=== PATIENT | male | born 1990 | race Caucasian/White ===

== ENCOUNTER 2017-07-13 15:31 | Emergency (ER) | payer BC ==
[~2017-07-13] VITALS: Ht 167.6 cm; Wt 69.9 kg
[~2017-07-13 15:31] MED LIST: ACET-1256 PO; AMOX500T PO; CALCTAB5 PO; CHOL100010 PO; FERR325T81 PO; HYDR2TAB48 PO; MISC4CAP PO; MRC50 PO; MULT-506 PO; PRLSR20 PO; TRAM-10 PO; VEDO1INJ INJ
[2017-07-13 15:39] VITALS: TEMP 36.8; Ht 167.6 cm; Wt 69.9 kg
[2017-07-13 17:08] LABS: BUN/CREATININE RATIO 9.2 (10-20); CALCIUM 9.6 mg/dl (8.5-10.1); CREATININE 0.99 mg/dl (0.60-1.40); POTASSIUM 3.5 mmol/L (3.5-5.1)
[2017-07-13 17:11] LABS: BASO % 0.3 %; BASO ABS # 0.02 K/uL (0-0.2); COMPLETE YES; EOS % 0.6 %; HEMATOCRIT 42.8 % (42-52); IG% 0.1 %; LYMPH ABS # 1.46 K/uL (1.2-3.4); MEAN CORPUSCULAR HEMOGLOBIN 31.5 pg (25-34); MEAN CORPUSCULAR HGB CONC 36.2 g/dl (32-36); MONO % 6.6 %; NEUT % 71.4 %; PLATELET COUNT 254 K/uL (130-400); RED BLOOD COUNT 4.92 M/uL (4.7-6.1); WHITE BLOOD COUNT 6.96 K/uL (4.8-10.8)
[2017-07-13 18:01] VITALS: BP 95/69; PULSE 82; O2SAT 100
--- NOTE | 2017-07-13 18:05 | EMERGENCY ROOM VISIT NOTE ---
History Report prepared by Matthias: Pablo Milian Under the Supervision of: Dr. Azael Pruitt M.D. First contact with patient: 15:53 Chief Complaint: GI ASSESSMENT Stated Complaint: POSSIBLE HERNIA,ISSUES WITH OSTOMY Nursing Triage Summary: patient states he has an ostomy and was lifting something heavy today. patient states, "I think I ay have pushed some of my intestines out. " History of Present Illness The patient is a 27 year old male with Crohn's disease who presents to the Emergency Room with complaints of persistent abdominal pain that started around 3 hours ago. He has an ileostomy, which was placed a year ago in [place]. The patient states that he was lifting a heavy 3 by 7 foot bar of aluminum, and a bit later, he felt a bulging in his ostomy bag and knew that something was not right. He says that the ileostomy site does not hurt, but he did start getting some achy left upper quadrant abdominal pain a bit after lifting the bar. He notes that he did not have any abdominal pain before lifting the bar. The patient denies any fevers, vomiting, diarrhea, or urinary symptoms. He notes that he is doing fine other than the symptoms after lifting the bar. He adds that he still has all of his colon. He is having output from his ileostomy without blood. Source of History: patient Onset: 3 hours ago Position: abdomen Quality: ache, other (after lifting bar) Timing: other (persistent) Associated Symptoms: No fevers, No vomiting, No diarrhea, No urinary symptoms Note: Associated symptoms: Bulging in ileostomy. Denies pain around ileostomy site. Review of Systems See HPI for pertinent positives & negatives. A total of 10 systems reviewed and were otherwise negative. Past Medical & Surgical Medical Problems: (1) Abscess of anal and rectal regions (2) CD (Crohn's disease) (3) Costochondritis (4) Crohn's colitis Family History Diabetes mellitus FH: cancer Hypertension Social History Smoking Status: Never Smoker Alcohol Use: none Drug Use: none Marital Status: single Housing Status: lives with family Occupation Status: student Current/Historical Medications Scheduled Calcium (Caltrate), 600 MG PO DAILY Cholecalciferol (Vitamin D), 1,000 INTER.UNIT PO DAILY Ferrous Gluconate (Iron Supplement), 65 MG PO DAILY Mercaptopurine (Mercaptopurine), 1.5 TAB PO DAILY Multivitamin (Multivitamin), 1 TAB PO DAILY Omeprazole (Prilosec), 20 MG PO DAILY Probiotic Product (Align), 1 CAP PO DAILY Vedolizumab (Entyvio), 300 MG INJ Q8WK Allergies Coded Allergies: Infliximab (Verified Allergy, Severe, ANAPHYLAXIS, 07/13/17) Patient received pre Treats as prescribed for REmicade. Infusion started. Less than 50cc had infused. Patient developed redness of face, lips swelling and nausea. Opted to send patient immediately to Ed for additional care Lactose Intolerance (Verified Adverse Reaction, Unknown, GI upset, ) Physical Exam Vital Signs Date Time Temp Pulse Resp B/P (MAP) Pulse Ox O2 Delivery O2 Flow Rate FiO2 07/13/17 15:39 36.8 80 18 127/84 100 Room Air Physical Exam Constitutional: Vital signs reviewed. Eyes: Pupils are equal round reactive to light. Conjunctiva are noninjected. ENT: Pharynx is clear without erythema or exudate. Mucous membranes are moist. Neck supple without meningeal signs. Respiratory: Clear to auscultation bilaterally. Breath sounds are equal bilaterally. Cardiovascular: Regular rate and rhythm. No rubs or gallops. GI: 5 to 6 inches of prolapsed bowel from stoma, no bleeding. Dark liquidy stool. Mild left upper quadrant tenderness. Soft and nondistended. Bowel sounds are present. Musculoskeletal: No peripheral edema. No lower extremity tenderness. Integumentary: No cyanosis. Neurological: The patient is awake and alert. No focal deficits. Psychiatric: Normal affect. Medical Decision & Procedures Laboratory Results 07/13/17 16:32 Red Blood Count 4.92, Mean Corpuscular Volume 87.0, Mean Corpuscular Hemoglobin 31.5, Mean Corpuscular Hemoglobin Concent 36.2, Neutrophils (%) (Auto) 71.4, Lymphocytes (%) (Auto) 21.0, Monocytes (%) (Auto) 6.6, Eosinophils (%) (Auto) 0.6, Basophils (%) (Auto) 0.3, Neutrophils # (Auto) 4.97, Lymphocytes # (Auto) 1.46, Monocytes # (Auto) 0.46, Eosinophils # (Auto) 0.04, Basophils # (Auto) 0.02 07/13/17 16:32 Test 07/13/17 16:32 White Blood Count 6.96 K/uL (4.8-10.8) Red Blood Count 4.92 M/uL (4.7-6.1) Hemoglobin 15.5 g/dL (14.0-18.0) Hematocrit 42.8 % (42-52) Mean Corpuscular Volume 87.0 fL (80-100) Mean Corpuscular Hemoglobin 31.5 pg (25-34) Mean Corpuscular Hemoglobin Concent 36.2 g/dl (32-36) Platelet Count 254 K/uL (130-400) Neutrophils (%) (Auto) 71.4 % Lymphocytes (%) (Auto) 21.0 % Monocytes (%) (Auto) 6.6 % Eosinophils (%) (Auto) 0.6 % Basophils (%) (Auto) 0.3 % Neutrophils # (Auto) 4.97 K/uL (1.4-6.5) Lymphocytes # (Auto) 1.46 K/uL (1.2-3.4) Monocytes # (Auto) 0.46 K/uL (0.11-0.59) Eosinophils # (Auto) 0.04 K/uL (0-0.5) Basophils # (Auto) 0.02 K/uL (0-0.2) Immature Granulocyte % (Auto) 0.1 % Immature Granulocyte # (Auto) 0.01 K/uL (0.00-0.02) Anion Gap 7.0 mmol/L (3-11) Est Creatinine Clear Calc Drug Dose 102.9 ml/min Estimated GFR () 122.2 Estimated GFR (Non- 105.4 BUN/Creatinine Ratio 9.2 (10-20) Calcium Level 9.6 mg/dl (8.5-10.1) Laboratory results as reviewed by me. Procedure Bowel reduction: Indication: Prolapsed bowel from ileostomy. The area was cleaned. The bowel was lightly coated with sugar. There was significant reduction in edema on reassessment and prolapsed bowel was easily reduced. The patient sat up and he had about a centimeter of prolapsed bowel which he states is normal for his ileostomy. He had no pain during or after the procedure. ED Course 1555: The patient was evaluated in room B2. A complete history and physical exam was performed. 1616: I discussed the patient with Dr. Windy MCMANUS surgery - he says to try to gently reduce it. If it can't be reduced, he will come down. 1725: I reevaluated the patient and he is having normal ileostomy output, and no longer has the abdominal pain. He wants to forego the x-ray. The patient verbally expressed understanding and agreement of the treatment plan. The patient will be discharged. Medical Decision This is a 27-year-old male who presents with prolapse bowel from his ileostomy. I did perform a limited focused review of portions of the patient's old chart on the electronic medical record. The patient has had no recent pertinent visits to this hospital. I did evaluate the patient as noted above. Patient is having prolapse of his bowel from his ileostomy here he does not have any pain in the region. He did complain of some left upper quadrant achy pain which she states is mild. The prolapse started after lifting something that was heavy. I did discuss case with the surgeon loss prevention specialist who recommended gentle reduction in the ED. IV access was established. I did order and review the patient's blood work as noted in the electronic medical record. I did easily reduced bowel as noted above. The patient had no discomfort during the procedure and stated that his abdominal discomfort completely resolved after the procedure was done. I initially ordered an x-ray but I canceled it as he is now asymptomatic. He has had output from the ileostomy since reduction and has no symptoms. He will follow with his doctor. He was discharged in good condition. He was advised to avoid any heavy lifting. Medication Reconcilliation Current Medication List: was personally reviewed by me Blood Pressure Screening Patient's blood pressure: Elevated blood pressure Blood pressure disposition: Elevated BP felt to be situational Consults Time Called: 1610 Consulting Physician: Dr. Windy MCMANUS surgery Returned Call: 1616 I discussed the patient with Dr. Windy MCMANUS surgery - he says to try to gently reduce it. If it can't be reduced, he will come down. Impression Primary Impression: Ileostomy prolapse Scribe Attestation The scribe's documentation has been prepared under my direct and personally reviewed by me in its entirety. I confirm that the note above accurately reflects all work, treatment, procedures, and medical decision making performed by me. Departure Information Dispostion Home / Self-Care Referrals No Doctor, Assigned (PCP) Patient Instructions Ileostomy Dc, My [facility] Additional Instructions You have been examined and treated today on an emergency basis only. This is not a substitute for, or an effort to provide, complete comprehensive medical care. It is impossible to recognize and treat all injuries or illnesses in a single emergency department visit. It is therefore important that you follow up closely with your physician. Call as soon as possible for an appointment. Return for worsening symptoms or if you develop fever, vomiting, abdominal pain , rectal bleeding or any other concerning symptoms. Avoid any heavy lifting.
== END 2017-07-13 18:01 | disposition home or self-care (01) ==
LOC: C.EDB 15:33
DX: K94.19 Other complications of enterostomy (principal); K50.90 Crohn's disease, unspecified, without complications; Z83.3 Family history of diabetes mellitus; Z82.49 Family history of ischemic heart disease and other diseases of the circulatory system